=== PATIENT | female | born 1965 | race Caucasian/White ===

== ENCOUNTER 2018-04-08 11:37 | Emergency (ER) | payer MEDICARE, MEDICAID ==
[~2018-04-08] VITALS: Ht 170.2 cm; Wt 157.2 kg
[~2018-04-08 11:37] MED LIST: CLEOCIN HCL150 MG PO; HYDROCHLOROTHIA25 M1; VENTOLIN HFA INH8 GM
[2018-04-08] MEDS ORDERED: ATROVENT HFA14 GM INH (11:53)
[2018-04-08] MEDS ORDERED: SYMBICORT160 MCG/4. INH (11:53)
[2018-04-08] MEDS ORDERED: ALBUTEROL2.5 MG/31 INH (11:53)
[2018-04-08] MEDS ORDERED: METFORMIN HCL500 MG PO (11:54)
[2018-04-08] MEDS ORDERED: IBUPROFEN 800800 M1 PO (13:43)
[2018-04-08] MEDS ORDERED: NORCO 5-325 TA1 EACH PO (13:43)
[2018-04-08 13:59] VITALS: BP 141/81
== END 2018-04-08 13:59 | disposition home or self-care (01) ==
LOC: M.ERS 11:37
DX: S42.031A Displaced fracture of lateral end of right clavicle, initial encounter for closed fracture (principal); S46.001A Unspecified injury of muscle(s) and tendon(s) of the rotator cuff of right shoulder, initial encounter; W18.40XA Slipping, tripping and stumbling without falling, unspecified, initial encounter; Y93.89 Activity, other specified; Y92.89 Other specified places as the place of occurrence of the external cause; Y99.8 Other external cause status; I10 Essential (primary) hypertension; J45.909 Unspecified asthma, uncomplicated; Z90.49 Acquired absence of other specified parts of digestive tract; F17.210 Nicotine dependence, cigarettes, uncomplicated; Z88.0 Allergy status to penicillin; Z88.2 Allergy status to sulfonamides; Z88.1 Allergy status to other antibiotic agents; Z88.5 Allergy status to narcotic agent; Z91.040 Latex allergy status

== ENCOUNTER → 2018-04-16 | Outpatient (CLI) | payer MEDICARE, MEDICAID ==
[~2018-04-16] MED LIST changes: +ALBUTEROL2.5 MG/31 INH; +ATROVENT HFA14 GM INH; +IBUPROFEN 800800 M1 PO; +METFORMIN HCL500 MG PO; +NORCO 5-325 TA1 EACH PO; +SYMBICORT160 MCG/4. INH
== END ==
LOC: M.MRI 15:52
DX: M75.101 Unspecified rotator cuff tear or rupture of right shoulder, not specified as traumatic (principal); M25.411 Effusion, right shoulder; J45.20 Mild intermittent asthma, uncomplicated

== ENCOUNTER 2018-04-25 16:37 | Emergency (ER) | payer MEDICARE, MEDICAID ==
[~2018-04-25] VITALS: Ht 170.2 cm; Wt 156.5 kg
[2018-04-25 17:53] LABS: ABSOLUTE BASOPHILS 0.1 thou/uL (0.0-0.2); ABSOLUTE EOSINOPHILS 0.1 thou/uL (0.0-0.7); ABSOLUTE LYMPHOCYTES 1.7 thou/uL (0.8-5.3); ABSOLUTE NEUTROPHILS 9.1 thou/uL (1.6-8.1); EOSINOPHILS 1.2 %; HEMATOCRIT 41.4 % (37.0-47.0); HEMOGLOBIN 13.5 gm/dL (12.0-15.0); LYMPHOCYTES 14.4 %; MCH 30.9 pg (26.0-34.0); MCHC 32.6 g/dL (28.0-37.0); MCV 94.9 fL (80.0-100.0); MONOCYTES 8.3 %; MPV 7.5 fl. (7.2-11.1); NUCLEATED RBCS 0 /100WBC; PLATELET COUNT* 263 thou/uL (150-400); POLYS 75.1 %; RBC 4.36 mil/uL (4.20-5.00); RDW-CV 14.1 % (10.5-14.5); WBC 12.1 thou/uL (4.0-11.0)
[2018-04-25 18:02] LABS: URINE BILIRUBIN NEGATIVE (Negative); URINE BLOOD 1+ (Negative); URINE CLARITY CLEAR; URINE COLOR YELLOW; URINE GLUCOSE-RANDOM NEGATIVE (Negative); URINE KETONES NEGATIVE (Negative); URINE LEUKOCYTES-REFLEX NEGATIVE (Negative); URINE NITRITE-REFLEX NEGATIVE (Negative); URINE PROTEIN NEGATIVE (Negative); URINE SPECIFIC GRAVITY >= 1.030 (1.005-1.030); URINE UROBILINOGEN 0.2 E.U./dl (0.2-1.0)
[2018-04-25 18:03] LABS: ANION GAP 6 mmol/L (7-16); BUN 15 mg/dL (7-18); CALCIUM 8.7 mg/dL (8.5-10.1); CHLORIDE 103 mmol/L (98-107); CO2 32 mmol/L (21-32); GLUCOSE 90 mg/dL (70-99); POTASSIUM 4.1 mmol/L (3.5-5.1); SODIUM 141 mmol/L (136-145)
[2018-04-25 18:08] LABS: BACTERIA-REFLEX >30 Many /HPF (None Seen); CASTS None Seen /LPF (None Seen); CRYSTALS None Seen /LPF (None Seen); SQUAMOUS 0-3 Few /LPF (0-3); URINE RBC None Seen /HPF (0-2); URINE WBC-REFLEX 0-5 Rare /HPF (0-5)
[2018-04-25 18:10] LABS: ALBUMIN 3.5 g/dL (3.4-5.0); ALKALINE PHOSPHATASE 87 U/L (46-116); LIPASE 84 U/L (73-393); SGOT 11 U/L (15-37); SGPT 21 U/L (30-65); TOTAL BILIRUBIN 0.2 mg/dL (<0.1-1.0); TOTAL PROTEIN 7.3 g/dL (6.4-8.2); TROPONIN-I LEVEL <0.06 ng/mL (<0.06)
[2018-04-25] MEDS ORDERED: MACROBID 100 M100 M2 PO (20:22)
[2018-04-25] MEDS ORDERED: FLOMAX0.4 MG PO (20:22)
[2018-04-25] MEDS ORDERED: HYDROCODONE-AP1 EAC6 PO (20:22)
[2018-04-25] MEDS ORDERED: ONDANSETRON HCL4 M2 PO (20:58)
[2018-04-25 21:36] VITALS: BP 151/101
[2018-04-26] MEDS ORDERED: VITAMIN B-12500 MCG PO (05:31)
[2018-04-26] MEDS ORDERED: VITAMIN D250000 UNIT PO (05:32)
[2018-04-26] MEDS ORDERED: IBUPROFEN 800800 M1 PO (05:33)
== END 2018-04-25 21:37 | disposition left against medical advice (07) ==
LOC: M.ERS 16:37
PROVIDERS: Nurse Practitioner Family
DX: N13.5 Crossing vessel and stricture of ureter without hydronephrosis (principal); N39.0 Urinary tract infection, site not specified; J45.909 Unspecified asthma, uncomplicated; I10 Essential (primary) hypertension; Z87.442 Personal history of urinary calculi; Z90.49 Acquired absence of other specified parts of digestive tract; Z88.1 Allergy status to other antibiotic agents; Z88.5 Allergy status to narcotic agent; Z91.041 Radiographic dye allergy status; Z88.6 Allergy status to analgesic agent; Z88.2 Allergy status to sulfonamides; Z88.8 Allergy status to other drugs, medicaments and biological substances

== ENCOUNTER 2018-04-26 | Inpatient (IN) | payer MEDICARE, MEDICAID ==
[~2018-04-26] VITALS: Ht 170.2 cm; Wt 156.5 kg
[~2018-04-26] MED LIST changes: +FLOMAX0.4 MG PO; +HYDROCODONE-AP1 EAC6 PO; +MACROBID 100 M100 M2 PO; +ONDANSETRON HCL4 M2 PO
[2018-04-26 00:14] VITALS: BP 159/101
[2018-04-26 01:20] VITALS: BP 146/84
[2018-04-26 01:30] VITALS: BP 152/80
[2018-04-26] MEDS ORDERED: VITAMIN B-12500 MCG PO (05:31)
[2018-04-26] MEDS ORDERED: VITAMIN D250000 UNIT PO (05:32)
[2018-04-26] MEDS ORDERED: IBUPROFEN 800800 M1 PO (05:33)
[2018-04-26 07:30] VITALS: BP 135/87
--- NOTE | 2018-04-27 14:42 | EKG ---
[place] [address] ELECTROCARDIOGRAM REPORT Name: NEDA MEHTA Room: [address] IN [facility]#: [id number] Admission: 04/26/18 Attend Phys: Jennifer Moreno Discharge: 04/26/18 Date of : 65 Report #: [id number] THIS REPORT FOR: //name// [facility] ED Test Date: 2018-04-25 Test Time: 17:37:33 Pat Name: NEDA MEHTA Department: Room: 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: TAMY : 1965 Requested By: Marge Bardales Order Number: [id number] MD: Carson Chu Measurements Intervals [place] Rate: 72 P: 61 IA: 175 QRS: 41 QRSD: 94 T: 33 QT: 387 QTc: 424 Interpretive Statements Sinus rhythm Baseline wander in lead(s) V6 Compared to ECG 12/01/2010 22:43:56 No significant changes Electronically Signed On 04-27-2018 14:42:26 [employer] by Carson Chu [email or web address] <ELECTRONICALLY SIGNED> By: Carson Chu MD, [facility] 04/27/18 1442 1737 1737 Carson Chu MD, [facility] /EPI
== END 2018-04-26 12:01 | disposition left against medical advice (07) | DRG 694 ==
LOC: M.ERS → M.ORTHSURG 00:27 → M.TBA-ER 00:27 → M.ORTHSURG 00:41
PROVIDERS: ADMIT Internal Medicine
DX: N20.2 Calculus of kidney with calculus of ureter (principal); Z68.43 Body mass index [BMI] 50.0-59.9, adult; J45.909 Unspecified asthma, uncomplicated; E66.01 Morbid (severe) obesity due to excess calories; F17.210 Nicotine dependence, cigarettes, uncomplicated; E11.9 Type 2 diabetes mellitus without complications; Z53.21 Procedure and treatment not carried out due to patient leaving prior to being seen by health care provider; I10 Essential (primary) hypertension; Z88.0 Allergy status to penicillin; Z88.2 Allergy status to sulfonamides; Z90.49 Acquired absence of other specified parts of digestive tract; Z88.8 Allergy status to other drugs, medicaments and biological substances; Z88.6 Allergy status to analgesic agent; Z88.1 Allergy status to other antibiotic agents; Z91.041 Radiographic dye allergy status; Z91.19 Patient's noncompliance with other medical treatment and regimen; Z79.899 Other long term (current) drug therapy

== ENCOUNTER 2018-05-08 21:27 | Emergency (ER) | payer OTHER, MEDICAID ==
[~2018-05-08] VITALS: Ht 170.2 cm; Wt 157.8 kg
[~2018-05-08 21:27] MED LIST changes: +VITAMIN B-12500 MCG PO; +VITAMIN D250000 UNIT PO
[2018-05-08] MEDS ORDERED: NITROFURANTOIN100 MG (21:45)
[2018-05-08 21:49] LABS: URINE BILIRUBIN NEGATIVE (Negative); URINE BLOOD 3+ (Negative); URINE CLARITY CLEAR; URINE COLOR YELLOW; URINE GLUCOSE-RANDOM NEGATIVE (Negative); URINE KETONES NEGATIVE (Negative); URINE LEUKOCYTES-REFLEX 1+ (Negative); URINE NITRITE-REFLEX NEGATIVE (Negative); URINE PROTEIN 2+ (Negative); URINE SPECIFIC GRAVITY >= 1.030 (1.005-1.030); URINE UROBILINOGEN 0.2 E.U./dl (0.2-1.0)
[2018-05-08 21:55] LABS: MUCUS 4-6 Moderate strn/LPF (None Seen); SQUAMOUS >10 Many /LPF (0-3)
[2018-05-08 21:57] LABS: URINE RBC >20 Many /HPF (0-2)
[2018-05-08 22:00] LABS: CASTS None Seen /LPF (None Seen)
[2018-05-08 22:01] LABS: BACTERIA-REFLEX 1-9 Few /HPF (None Seen); CRYSTALS None Seen /LPF (None Seen); URINE WBC-REFLEX 6-15 Few /HPF (0-5)
[2018-05-08 22:10] LABS: ABSOLUTE BASOPHILS 0.1 thou/uL (0.0-0.2); ABSOLUTE EOSINOPHILS 0.2 thou/uL (0.0-0.7); ABSOLUTE LYMPHOCYTES 2.5 thou/uL (0.8-5.3); ABSOLUTE MONOCYTES 0.6 thou/uL (0.0-1.2); ABSOLUTE NEUTROPHILS 7.2 thou/uL (1.6-8.1); BASOPHILS 0.8 %; HEMATOCRIT 40.8 % (37.0-47.0); HEMOGLOBIN 13.6 gm/dL (12.0-15.0); LYMPHOCYTES 23.4 %; MCH 31.5 pg (26.0-34.0); MCHC 33.3 g/dL (28.0-37.0); MCV 94.4 fL (80.0-100.0); MONOCYTES 5.8 %; MPV 7.6 fl. (7.2-11.1); NUCLEATED RBCS 0 /100WBC; PLATELET COUNT* 240 thou/uL (150-400); RBC 4.32 mil/uL (4.20-5.00); RDW-CV 14.8 % (10.5-14.5); WBC 10.6 thou/uL (4.0-11.0)
[2018-05-08 22:18] LABS: CALCIUM 8.8 mg/dL (8.5-10.1); POTASSIUM 3.5 mmol/L (3.5-5.1)
[2018-05-08 22:23] LABS: ALBUMIN 3.3 g/dL (3.4-5.0); TOTAL BILIRUBIN 0.2 mg/dL (<0.1-1.0)
[2018-05-08] MEDS ORDERED: MACROBID 100 M100 M1 PO (23:17)
[2018-05-08 23:19] VITALS: BP 139/94
== END 2018-05-08 23:21 | disposition home or self-care (01) ==
LOC: M.ERS 21:27
PROVIDERS: Physician Assistant
DX: N39.0 Urinary tract infection, site not specified (principal); R19.7 Diarrhea, unspecified; J45.909 Unspecified asthma, uncomplicated; I10 Essential (primary) hypertension; Z90.49 Acquired absence of other specified parts of digestive tract; Z87.442 Personal history of urinary calculi; Z88.1 Allergy status to other antibiotic agents; Z88.5 Allergy status to narcotic agent; Z91.041 Radiographic dye allergy status; Z88.0 Allergy status to penicillin; Z88.2 Allergy status to sulfonamides; Z88.8 Allergy status to other drugs, medicaments and biological substances

== ENCOUNTER 2018-12-16 06:42 | Emergency (ER) | payer OTHER, MEDICAID ==
[~2018-12-16] VITALS: Ht 170.2 cm; Wt 158.3 kg
[~2018-12-16 06:42] MED LIST changes: +DOXYCYCLINE 10100 MG PO; +MACROBID 100 M100 M1 PO; +NITROFURANTOIN100 MG; +PREDNISONE 20 M20 M1 PO; +SCOPOLAMINE1 EACH TRANSDERM
[2018-12-16] MEDS ORDERED: VITAMIN D3400 UNIT PO (07:00)
[2018-12-16 07:37] VITALS: BP 138/67
== END 2018-12-16 07:37 | disposition home or self-care (01) ==
LOC: M.ERS 06:42
DX: R60.0 Localized edema (principal); I10 Essential (primary) hypertension; J45.909 Unspecified asthma, uncomplicated; F17.210 Nicotine dependence, cigarettes, uncomplicated; Z87.442 Personal history of urinary calculi; Z90.49 Acquired absence of other specified parts of digestive tract; Z98.84 Bariatric surgery status; Z98.890 Other specified postprocedural states; Z86.73 Personal history of transient ischemic attack (TIA), and cerebral infarction without residual deficits; Z88.1 Allergy status to other antibiotic agents; Z88.2 Allergy status to sulfonamides; Z88.0 Allergy status to penicillin; Z88.5 Allergy status to narcotic agent; Z91.041 Radiographic dye allergy status; Z88.8 Allergy status to other drugs, medicaments and biological substances

== ENCOUNTER → 2020-12-21 | Outpatient (CLI) | payer OTHER, MEDICAID ==
[~2020-12-21] MED LIST changes: +VITAMIN D3400 UNIT PO
== END ==
LOC: M.ULTRA 12-18 12:48
PROVIDERS: ATTEND Registered Nurse Diabetes Educator
DX: Z12.31 Encounter for screening mammogram for malignant neoplasm of breast (principal); E04.1 Nontoxic single thyroid nodule; N64.89 Other specified disorders of breast

== ENCOUNTER → 2020-12-29 | Outpatient (CLI) | payer OTHER, MEDICAID | LOC: M.ULTRA 12-28 09:00 | PROVIDERS: ATTEND Registered Nurse Diabetes Educator | DX: N63.13 Unspecified lump in the right breast, lower outer quadrant (principal) ==

== ENCOUNTER → 2021-02-09 | Outpatient (CLI) | payer OTHER, MEDICAID | END | disposition home or self-care (01) | LOC: M.ULTRA 13:20 → M.RAD 14:00 → M.ULTRA 14:00 | PROVIDERS: ATTEND Registered Nurse Diabetes Educator | DX: N63.10 Unspecified lump in the right breast, unspecified quadrant (principal); Z53.8 Procedure and treatment not carried out for other reasons; Z98.890 Other specified postprocedural states; Z79.899 Other long term (current) drug therapy ==

== ENCOUNTER → 2021-02-16 | Outpatient (CLI) | payer OTHER, MEDICAID ==
--- NOTE | 2021-02-18 14:07 | PATH ---
[address] [address] PATHOLOGY RPT PROCEDURE Name: NEDA MEHTA Room: [facility] DANDY [place].#: [id number] Admission: 02/16/21 Date of : 65 Discharge: Report #: [id number] Path Case #: [id number] [facility] Accession Number: [id number] . 01 Material submitted: . breast - RIGHT BREAST BIOPSY. Modifiers: right . 01 Clinical history: . RIGHT BREAST MASS 8:30 3CMFN; 0.94 X 0.42 X 0.59 . 02 Diagnosis: Breast "right mass at 8:30 3cfn", needle biopsy: - Fibrocystic changes, including dense fibrosis, cyst formation, and duct ectasia. - Focal microcalcification. - Negative for atypia and malignancy. (NATALIE:joseph; 02/18/2021) MBR 02/18/2021 1312 Local . 02 Comment: The case is seen in co-review with Dr. Jeffery Sandhu and she concurs with the diagnosis on 02/18/2021. (PARASK:joseph; 02/18/2021) . 02 Electronically signed: . Blair Ramachandran MD, Pathologist NPI- [id number] . 01 Gross description: . The specimen is received in formalin, labeled "Neda Mehta, Rt breast bx 8:30 3cFn" and consists of 4 fibrofatty cylindrical tissues (ranging in length from 1.6 cm to 2.6 cm and ranging in diameter from 0.4 cm to 0.7 cm). The specimen is submitted in toto in A1-A4. The cold ischemic time is 5 minutes. The total time in formalin is 14 hours. ([place]; 02/16/2021) DKA/DKA 02/16/2021 1857 Local . 02 Pathologist provided ICD-10: N60.11, N60.31, N60.41, N60.21 . 02 CPT . 520084 Specimen Comment: A courtesy copy of this report has been sent to [phone], [phone] Specimen Comment: [phone] Specimen Comment: Report sent to / DR JEWELL Performed at: [address] [place] [address] PATHOLOGY RPT PROCEDURE Name: NEDA MEHTA Room: [facility] DANDY Sorto#: [id number] Admission: 02/16/21 Date of : 65 Discharge: Report #: [id number] Path Case #: [id number] [address] [facility] [address], [place], [place] [id number] MD Alvaro Chen MD Phone: [phone] Performed at: [address] [id number] MD Ramone Nair MD Phone: [phone]
== END ==
LOC: M.ULTRA 07:54
PROVIDERS: ATTEND Registered Nurse Diabetes Educator
DX: N63.10 Unspecified lump in the right breast, unspecified quadrant (principal); R92.8 Other abnormal and inconclusive findings on diagnostic imaging of breast